=== PATIENT | male | born 1970 | race Caucasian/White ===

== ENCOUNTER 2023-04-04 11:24 | Outpatient (OUT) | payer OTHER, SELFPAY ==
--- NOTE | 2023-04-04 11:41 | XR_ITS ---
[address] [address] Patient Name: SUSANNE MIMS MRN: [id number] date: 1970 Sex: M Assigned Patient Location: [facility] Current Patient Location: [facility] Accession/Order Number: [id number] Exam Date: 04/04/2023 11:46 Report Date: 04/04/2023 12:52 At the request of: GISELE REYNA Procedure: XR lumbar spine 2-3V EXAM: XR lumbar spine 2-3V HISTORY: Lumbar Region Radiculopathy M54.16 COMPARISON: None. TECHNIQUE: 3 views FINDINGS: Satisfactory alignment. Maintained vertebral body heights. Mild endplate degenerative changes, disc disease, and facet arthropathy of L4-S1. Unremarkable soft tissues. XR/XR lumbar spine 2-3V IMPRESSION: Degenerative changes and disc as above. Electronically authenticated by: JARVIS YAÑEZ Date: 04/04/2023 12:52
== END 2023-04-04 11:25 | disposition home or self-care (01) ==
LOC: RAD 11:31
PROVIDERS: PCP Family Medicine; Visit Provider Family Medicine
DX: M54.16 Radiculopathy, lumbar region (principal)
CPT/HCPCS: 72100

== ENCOUNTER 2023-05-01 10:04 | Outpatient (OUT) | payer OTHER, SELFPAY ==
--- NOTE | 2023-05-01 10:07 | US_ITS ---
The [address] [address] Patient Name: SUSANNE MIMS MRN: [id number] date: 1970 Sex: M Assigned Patient Location: US Current Patient Location: US Accession/Order Number: [id number] Exam Date: 05/01/2023 10:08 Report Date: 05/01/2023 11:10 At the request of: GISELE REYNA Procedure: US abdomen limited EXAMINATION: US abdomen limited HISTORY: Palpable Mass Of Lower Back R22.2 COMPARISON: No relevant comparison available. FINDINGS: Identified in the area the patient's palpable abnormality is an oval well-circumscribed 3.6 x 5.3 x 1.7 cm mass within the deep subcutaneous fat extending to the muscle. This mass is isovascular to the surrounding fat with no definitive vascularity observed, this could be related to a high range being used US/US abdomen limited IMPRESSION: 5.3 cm mass corresponding to the patient's palpable abnormality. A lipoma is statistically favored Electronically authenticated by: ASHU CHONG Date: 05/01/2023 11:10
--- OUTSIDE RECORDS SUMMARY | 2023-05-14 03:14 | XMS_ITS | CCD ---
Author Name Unknown Address [address] [place] [address] Organization [facility] Care Team Providers Care Histological Illustrator Name Role Phone Samantha Chase Unavailable Allergies Allergy Classification Reported Allergen(s) Allergy Type Date of Onset Reaction(s) Facility (4 sources) metFORMIN Drug Allergy 5 Unknown [facility] Other (1 source) patient allergy list reviewed by nurse or physicia Propensity to adverse reactions 4 Comment:Done [facility] Other Medications Current Medications Medication Drug Class(es) Dates Sig (Normalized) Sig (Original) Contour Next Test - (3 sources) Contour Next Test - test daily In Vitro daily for 90 days Active semaglutide 3 mg oral tablet (3 sources) Start: 04-24-2023 Rybelsus 3 MG as directed Orally Mar, Active sildenafil 50 mg oral tablet (3 sources) Phosphodiesterase 5 Inhibitor Start: 04-24-2023 take 1 tablet by mouth every twenty-four hours Viagra 50 MG 1 tablet as needed Orally Once a day for 30 day(s) Mar, Active Completed/Discontinued Medications Medication Drug Class(es) Dates Sig (Normalized) Sig (Original) methylPREDNISolone (4 sources) Corticosteroid Start: 08-21-2017 Depo-Medrol 80 mg Jul, 80 mg Problems Active Problems Problem Classification Problem Date Documented Da te Episodic/Chronic Diabetes mellitus with complications (5 sources) Type II diabetes mellitus uncontrolled; Translations: [Diabetes mellitus without mention of complication, type II or unspecified type, uncontrolled] Onset: 07-11-2014 Chronic Open wounds of extremities (1 source) Open wound of toe without complication; Translations: [Laceration without foreign body of unspecified great toe without damage to nail, initial encounter] Episodic Other connective tissue disease (1 source) Plantar fascial fibromatosis; Translations: [Plantar fasciitis] Episodic Other connective tissue disease (2 sources) Plantar fasciitis; Translations: [Plantar fascial fibromatosis] Episodic Other male genital disorders (2 sources) Male erectile dysfunction, unspecified; Translations: [Primary erectile dysfunction] Chronic Other male genital disorders (2 sources) Primary erectile dysfunction ; Translations: [Male erectile dysfunction, unspecified] Chronic Other nutritional; endocrine; and metabolic disorders (1 source) Obesity; Translations: [Obesity, unspecified] Onset: 07-11-2014 Chronic Other skin disorders (2 sources) Localized swelling, mass and lump, trunk Episodic Spondylosis; intervertebral disc disorders; other back problems (1 source) Radiculopathy, lumbar region Episodic Past or Other Problems Problem Classification Problem Date Documented Da te Episodic/Chronic Other connective tissue disease (1 source) Medial epicondylitis; Translations: [Medial epicondylitis, unspecified elbow] Onset: 04-06-2014 Episodic Other connective tissue disease (1 source) Plantar fascial fibromatosis; Translations: [Plantar fascial fibromatosis] Onset: 03-07-2014 Episodic Other non-traumatic joint disorders (1 source) Arthralgia of the upper arm; Translations: [Pain in unspecified elbow] Onset: 04-06-2014 Episodic Other upper respiratory infections (1 source) Acute sinusitis; Translations: [Acute sinusitis, unspecified] Onset: 05-20-2014 Episodic Residual codes; unclassified (1 source) Family history of diabetes mellitus; Translations: [Family history of diabetes mellitus] Onset: 03-07-2014 Episodic Residual codes; unclassified (1 source) C/O - a back symptom; Translations: [Other symptoms referable to back] Onset: 05-25-2015 Episodic Vital Signs Date Time Vital Sign Value Performing Clinician Facility 04-24-2023 10:00-0500 Body height 182.88 cm Samantha Chase Other [facility] Other 04-24-2023 10:00-0500 Body mass index (BMI) [Ratio] 36.34 kg/m2 Samantha Chase Other [facility] Other 04-24-2023 10:00-0500 Body weight 121.56 kg Samantha Salvatore Other [facility] Other 04-24-2023 10:00-0500 Diastolic blood pressure 94 mm[Hg] Samantha Salvatore Other [facility] Other 04-24-2023 10:00-0500 Systolic blood pressure 131 mm[Hg] Samantha Salvatore Other [facility] Other Encounters Encounter Date Encounter Type Care Provider Facility Start: 05-01-2023 End: 05-01-2023 ambulatory Samantha Salvatore Other [facility] Other Start: 05-01-2023 Telephone encounter Samantha Salvatore [facility] Start: 04-28-2023 End: 04-28-2023 ambulatory Samantha Salvatore Other [facility] Other Start: 04-28-2023 Telephone encounter Samantha Salvatore [facility] Start: 04-24-2023 End: 04-24-2023 ambulatory Samantha Salvatore Other [facility] Other Start: 04-24-2023 Office outpatient vi sit 10 minutes Samantha Chase [facility] Start: 04-22-2023 End: 04-22-2023 ambulatory Samantha Salvatore Other [facility] Other Start: 04-22-2023 Telephone encounter Samantha Salvatore [facility] Start: 01-07-2020 Problem, abnormal examination Samantha Salvatore Other [facility] Other Immunizations Immunization Date Immunization Notes Care Provider Fa janeen 05-05-2014 influenza virus vaccine, split virus (incl. purified surface antigen) Samantha Chase Other [facility] Other Payers Date Payer Category Payer Policy ID Unknown [id number] [id number] Social History Date Type Detail Facility Unknown if ever smoked [facility] Other Sex Assigned At Sex Assigned At Bir th [facility] Other Evaluation note 04-28-2023 Note Date & Type Note Facility 04-28-2023 Evaluation note Encounter Date Diagnosis Assessment Notes Apr, Palpable mass of lower back (ICD-10 - R22.2) [facility] Other Evaluation note 04-24-2023 Note Date & Type Note Facility 04-24-2023 Evaluation note Encounter Date Diagnosis Assessment Notes Mar, Type 2 diabetes mellitus with hyperglycemia, without long-term current use of insulin (ICD-10 - E11.65) samples given of rybelsus. Mar, Primary erectile dysfunction (ICD-10 - N52.9) requests viagra Mar, Lumbar radiculopathy, right (ICD-10 - M54.16) reviewed xray report Mar, Palpable mass of lower back (ICD-10 - R22.2) handwrote order for an US of his L lower back - probable lipoma. [facility] Other Evaluation note Note Date & Type Note Facility Evaluation note No Information [facility] Other History general Narrative - Reported Note Date & Type Note Facility History general Narrative - Reported Type Medical History Problem Title : comp liance with medical treatment, Problem Description : compliance with medical treatment, Problem Comment : Done, Problem Status : Active,, Medical History Problem Title : dors hamida pedis pulse, left, Problem Description : dorsalis pedis pulse, left, Problem Comment : normal, Problem Status : Active,, Medical History Problem Title : dors hamida pedis pulse, right, Problem Description : dorsalis pedis pulse, right, Problem Comment : normal, Problem Status : Active,, Medical History Problem Title : home monitoring blood glucose range before lunch, Problem Description : home monitoring blood glucose range before lunch, Problem Comment : 150, Problem Status : Active,, Medical History Problem Title : home monitoring blood glucose range fasting, Problem Description : home monitoring blood glucose range fasting, Problem Comment : 120, Problem Status : Active,, Medical History Problem Title : no k nown problems, Problem Description : no known problems, Problem Comment : F, Problem Status : Active,, Medical History Problem Title : past medical history E&M, Problem Description : past medical history E&M, Problem Comment : Elevated triglycerides, Problem Status : Active,, Medical History Problem Title : past medical history reviewed, Problem Description : past medical history reviewed, Problem Comment : reviewed - no changes required, Problem Status : Active,, Medical History Problem Title : javier ent enrolled in a diabetes education program, Problem Description : patient enrolled in a diabetes education program, Problem Comment : no, Problem Status : Active,, Medical History Problem Title : very low density lipoproteins, Problem Description : very low density lipoproteins, Problem Comment : 47.0, Problem Status : Active,, Surgical History Problem Title : past surgical history reviewed, Problem Description : past surgical history reviewed, Problem Comment : reviewed - no changes required, Problem Status : Active, Surgical History Problem Title : surg ical procedures, hx of, Problem Description : surgical procedures, hx of, Problem Comment : C-scope 08/02 - normal, Problem Status : Active, [facility] Other History general Narrative - Reported Note Date & Type Note Facility History general Narrative - Reported Type Medical History Plantar fasciitis Surgical History C-scope 2009 Hospitalization History SEE SURGICAL HX [facility] Other Additional Source Comments REASON FOR VISIT (unrecogniz ed section and content) lumbar xrayHigh GlucoseNew O rderUS result FOR RECORDS PERTAINING TO PATIENTS WHO ARE OR HAVE BEEN ENROLLED IN A CHEMICAL DEPENDENCY/SUBSTANCEABUSE PROGRAM, SOME INFORMATION MAY BE OMITTED. This clinical summary was aggregated from multiple sources. Caution should be exercised in using it in the provision of clinical care. This summary normalizes information from multiple sources, and as a consequence, information in this document may materially change the coding, format and clinical context of patient data. In addition, data may be omitted in some cases. CLINICAL DECISIONS SHOULD BE BASED ON THE PRIMARY CLINICAL RECORDS. [email or web address] provides no warranty or guarantee of the accuracy or completeness of information in this document.
== END 2023-05-01 10:05 | disposition home or self-care (01) ==
LOC: US 10:04
PROVIDERS: PCP Family Medicine; Visit Provider Family Medicine
DX: R22.2 Localized swelling, mass and lump, trunk (principal)
CPT/HCPCS: 76705